=== PATIENT | female | born 1985 | race Caucasian/White ===

== ENCOUNTER 2018-07-09 11:43 | Inpatient (IN) ==
[2018-07-09] MEDS ORDERED: RINGER'S SOLUTION,LACTATED 1,000 ML IV PRN ×2 (11:48)
[2018-07-09 12:08] LABS: Hematocrit 38.8 % (37.0-47.0); Hemoglobin 13.2 gm/dL (12.5-16.0); Mean Cell Volume 85.8 fl (78-100); Mean Corpuscular Hemoglobin 29.2 pg (27-31); Mean Platelet Volume 10.3 fl (8-12.5); Neutrophil # 7.5 K/mm3 (1.3-6.0); Neutrophil % 74.6 % (42-75.0); Platelet Count 149 K/mm3 (150-450); Red Blood Count 4.52 M/mm3 (4.2-5.4); Red Cell Distribution Width 13.9 % (11.5-14.0)
--- NOTE | 2018-07-09 12:27 | HP ---
Chief Complaint - Chief Complaint Date of Service: 07/09/18 Time of Service: 12:18 Chief Complaint: contractions History of Present Illness: 33 yo at 37 4/7 wks presents to L&D from office for contractions of increasing frequency and intensity over the past 2 hours, bringing her to tears. This complicated by AMA, DPS via bilateral salpingectomy, prior c/s x 2, thrombocytopenia (134K on 06/25/18). Rh positive Rubella immune GBS positive Medical History (Last Reviewed 07/09/18 @ 12:21 by Dale Soliz DO) Advanced maternal age affecting , antepartum (Acute) Request for sterilization (Acute) Informed consent signed for bilateral salpingectomy 06/25/18 Thrombocytopenia (Acute) Onset Date: 06/25/18 Influenza vaccination declined by patient (Acute) Onset Date: 06/25/18 Advanced maternal age (AMA) in Onset Date: 06/25/18 Body piercing Onset Date: Unknown Cephalalgia Onset Date: 08/19/14 Cluster headache Onset Date: Unknown Migraine Onset Date: 08/19/14 Obesity Onset Date: Unknown Wears glasses Onset Date: Unknown Spontaneous Onset Date: ~2001 Surgical History: Surgical History (Last Reviewed 07/09/18 @ 12:21 by Dale Soliz DO) Previous section (Chronic) C/S x 2 H/O dilation and curettage Onset Date: ~2001 History of cholecystectomy Onset Date: ~2012 Hx of adenoidectomy Onset Date: ~1987 as a child Hx of tonsillectomy Onset Date: ~1987 as a child Hx of tympanostomy tubes Onset Date: Unknown Previous section Onset Date: ~2002 Family History: Family History (Last Reviewed 07/09/18 @ 12:21 by Dale Soliz DO) Mother Alive and well Father Diabetes Hypertension Social History: Preferred Language [place] Smoking Status Never smoker (Last Updated 07/09/18 @ 11:52 by Dale Soliz DO) No Social History Section defined Review Of Systems (GEN) - Review of Systems Generalized/Overall Review: Present: No Symptoms Reported EENTM: Present: No Symptoms Reported Respiratory: Present: No Symptoms Reported Cardiac: Present: No Symptoms Reported Abdominal: Present: Other - contractions Genitourinary: Present: No Symptoms Reported Musculoskeletal: Present: No Symptoms Reported Neurological: Present: No Symptoms Reported Skin: Present: No Symptoms Reported Endocrine: Present: No Symptoms Reported Allergies/Adverse Reactions: Allergies Allergy/AdvReac Type Severity Reaction Status Date / Time No Known Drug Allergies Allergy Verified 07/09/18 12:05 Home Medications: HOME MEDICATIONS vitamins no.106-iron 27.5 mg-folate no.6 1 mg-dha capsule 1 cap PO DAILY 06/25/18 [Last Taken Unknown] Exam - Exam Vital Signs: Vital Signs - Last Taken Temp 36.4 C 07/09/18 11:55 Pulse 112 H 07/09/18 11:55 Resp 18 07/09/18 11:55 BP 151/92 H 07/09/18 11:55 Pulse Ox 95 07/09/18 11:55 Constitutional: Present: Alert, Oriented x3, Cooperative, Moderate distress ENT Exam: Present: hearing grossly normal Respiratory: Present: lungs clear, no respiratory distress Cardiovascular/Chest: Present: normal peripheral pulses, no edema, tachycardia. Absent: diastolic murmur, systolic murmur Abdomen: Present: soft, nontender, no rebound tenderness, other - gravid /Rectal: Present: Other - cervix 1/50/-2 Extremity: Present: no pedal edema, no calf tenderness Skin Exam: Present: normal color, warm/dry, no cyanosis Neurologic: Present: alert, normal mood/affect, oriented x 3 Appearance: Present: appropriate appearance, appropriate insight, other - appears in pain Eye contact: Present: cooperative, good eye contact Thoughts: Present: normal thought pattern Diagnostic Studies: Abnormal Lab Results 07/09/18 Range/Units 12:00 Plt Count 149 L (150-450) K/mm3 Immature Gran % (Auto) 0.90 H (0.001-0.429) % Immature Gran # (Auto) 0.09 H (0.000-0.0310) K/mm3 Lymphocytes % 15.7 L (20-51) % Neutrophils # 7.5 H (1.3-6.0) K/mm3 Laboratory Results WBC 10.0 K/mm3 (4.0-10.5) 07/09/18 12:00 RBC 4.52 M/mm3 (4.2-5.4) 07/09/18 12:00 Hgb 13.2 gm/dL (12.5-16.0) 07/09/18 12:00 Hct 38.8 % (37.0-47.0) 07/09/18 12:00 MCV 85.8 fl (78-100) 07/09/18 12:00 MCH 29.2 pg (27-31) 07/09/18 12:00 MCHC 34.0 g/dl (32-36) 07/09/18 12:00 RDW 13.9 % (11.5-14.0) 07/09/18 12:00 Plt Count 149 K/mm3 (150-450) L 07/09/18 12:00 MPV 10.3 fl (8-12.5) 07/09/18 12:00 Immature Gran % (Auto) 0.90 % (0.001-0.429) H 07/09/18 12:00 Immature Gran # (Auto) 0.09 K/mm3 (0.000-0.0310) H 07/09/18 12:00 Neutrophils % 74.6 % (42-75.0) 07/09/18 12:00 Lymphocytes % 15.7 % (20-51) L 07/09/18 12:00 Monocytes % 8.3 % (0.0-9) 07/09/18 12:00 Eosinophils % 0.4 % (0.0-3.0) 07/09/18 12:00 Basophils % 0.1 % (0.0-1.0) 07/09/18 12:00 Nucleated RBC % 0.0 k/mm3 (0-1) 07/09/18 12:00 Neutrophils # 7.5 K/mm3 (1.3-6.0) H 07/09/18 12:00 Lymphocytes # 1.57 k/mm3 (1.5-3.5) 07/09/18 12:00 Monocytes # 0.8 k/mm3 (0.0-1.0) 07/09/18 12:00 Eosinophils # 0.0 k/mm3 (0.0-0.7) 07/09/18 12:00 Absolute Basophils 0.0 k/mm3 (0.0-0.1) 07/09/18 12:00 Assessment/Plan - Assessment/Plan (1) First stage of labor established Assessment: R/b/a reviewed with patient and spouse regarding repeat section with bilateral salpingectomy. All questions answered. Will proceed with surgery due to onset of labor. Problem: Acute (2) Advanced maternal age affecting , antepartum Problem: Acute (3) Request for sterilization Problem: Acute (4) Previous section Problem: Chronic (5) Thrombocytopenia Problem: Acute (6) Influenza vaccination declined by patient Problem: Acute
[2018-07-09] MEDS ORDERED: ceFAZolin SODIUM/DEXTROSE,ISO 2 GM/50 ML BAG IV ONE (12:30)
[2018-07-09] MEDS ORDERED: OXYTOCIN 20 UNITS in RINGER'S SOLUTION,LACTATED 1,000 ML IV ONE (12:30)
--- NOTE | 2018-07-09 12:51 | ANES ---
Anesthesia Pre Procedure Eval Vitals/Labs: Last Vital Signs Temp 36.4 C 07/09/18 11:55 Pulse 112 H 07/09/18 11:55 Resp 18 07/09/18 11:55 BP 151/92 H 07/09/18 11:55 Pulse Ox 95 07/09/18 11:55 HOME MEDICATIONS vitamins no.106-iron 27.5 mg-folate no.6 1 mg-dha capsule 1 cap PO DAILY 06/25/18 [Last Taken Unknown] Allergies/Adverse Reactions: Allergies Allergy/AdvReac Type Severity Reaction Status Date / Time No Known Drug Allergies Allergy Verified 07/09/18 12:05 - Planned Procedure Planned Procedure: ACTIVE LABOR Medication List Reviewed:: Yes Allergies Verified: Yes Medical History (Last Reviewed 07/09/18 @ 12:50 by Jose Osorio CRNA) Advanced maternal age affecting , antepartum (Acute) Request for sterilization (Acute) Informed consent signed for bilateral salpingectomy 06/25/18 Thrombocytopenia (Acute) Onset Date: 06/25/18 Influenza vaccination declined by patient (Acute) Onset Date: 06/25/18 Advanced maternal age (AMA) in Onset Date: 06/25/18 Body piercing Onset Date: Unknown Cephalalgia Onset Date: 08/19/14 Cluster headache Onset Date: Unknown Migraine Onset Date: 08/19/14 Obesity Onset Date: Unknown Wears glasses Onset Date: Unknown Spontaneous Onset Date: ~2001 Surgical History (Last Reviewed 07/09/18 @ 12:50 by Jose Osorio CRNA) Previous section (Chronic) C/S x 2 H/O dilation and curettage Onset Date: ~2001 History of cholecystectomy Onset Date: ~2012 Hx of adenoidectomy Onset Date: ~1987 as a child Hx of tonsillectomy Onset Date: ~1987 as a child Hx of tympanostomy tubes Onset Date: Unknown Previous section Onset Date: ~2002 Family History (Last Reviewed 07/09/18 @ 12:50 by Jose Osorio CRNA) Mother Alive and well Father Diabetes Hypertension - Family Anesthesia History Family History:: no untoward family reactions to anesthesia, no familial bleeding tendencies, no family history of clotting disorders, no family history of premature - Airway/Neck/Teeth Within Normal Limits:: Yes Teeth Condition: intact Neck Exam: full range of motion Mallampatti Score: 2 Thyromental (T-M) distance: > 6 cm Mandibulo Hyoid distance: > 3 cm - Respiratory Smoking Status: Never smoker Sleep Apnea currently treated: No Sleep Apnea by current assessment: No - Cardiovascular Tolerate Activity: Fair Heart Sounds: S1 & S2, Regular - Anesthesia Assessment and Plan ASA Class: PS, II, E Anesthesia Type Plan: Block - possible TAP block for post op pain relief, Spinal Planned difficult intubation/equipment available: No
[2018-07-09] MEDS ORDERED: CALCIUM CARBONATE 500 MG TAB.CHEW PO PRN (14:23)
[2018-07-09] MEDS ORDERED: oxyCODONE HCL/ACETAMINOPHEN 1 TAB TABLET PO PRN (15:02)
[2018-07-09] MEDS ORDERED: SIMETHICONE 80 MG TAB.CHEW PO PRN (15:02)
[2018-07-09] MEDS ORDERED: SENNOSIDES 8.6 MG TABLET PO PRN (15:02)
[2018-07-09] MEDS ORDERED: ONDANSETRON HCL/PF 2 MG/ML VIAL IV PRN (15:02)
[2018-07-09] MEDS ORDERED: BISACODYL 10 MG SUPP.RECT RC PRN (15:02)
[2018-07-09] MEDS ORDERED: HYDROmorphone HCL 1 MG/ML DISP.SYRIN IV ONE (15:12)
--- NOTE | 2018-07-09 15:12 | OR ---
Operative Report - Dictated Report Narrative: Indication: 33-year-old 4 para 2 at 37-4/7 weeks presents to labor and delivery in labor with prior section 2 and desiring permanent sterilization via bilateral salpingectomy. status: Planned - Urgent Pre Operative Diagnosis: 37-4/7 week intrauterine , prior section 2, labor, desires permanent sterilization via bilateral salpingectomy Post Operative Diagnosis: Same. Uterine and omental adhesions to anterior abdominal wall Procedure: Repeat low transverse section. Bilateral salpingectomy. Abdominal scar revision - 18cm Surgeon: Allen Soliz DO Child Welfare Director: OR Staff Anesthesia: Spinal, TAP block Estimated Blood Loss: 300 mL Urine Output: 200 mL clear urine Fluids Replacement: 1500 mL of crystalloid Drains: Nicole to gravity Surgical Complications: None Specimens: Placenta to freezer Findings: Male born vigorously crying at 1326 on 07/09/2020 in cephalic presentation with Apgars 9 and 9, weighing 3520 g. Umbilical cord draped around neck loosely. Uterus adherent to anterior abdominal wall, omentum adherent to anterior abdominal wall and bladder, normal-appearing tubes and ovaries. Technique: The patient was taken to the operating room and placed in dorsal supine position with a left lateral tilt. After adequate spinal anesthesia, nicole catheter inserted, SCDs placed, and 2 g of Ancef given preoperatively, the previous scar was excised in an elliptical fashion and the abdominal cavity was entered using sharp and blunt dissection. Uterine and omental adhesions were taken down sharply and bluntly with the scalpel, Bovie, and traction. A transverse incision was made in the lower uterine segment and extended laterally and upwardly with digital traction. Clear fluid was noted upon amniotomy. The infant was delivered easily. The cord was clamped within 30 seconds then cut. The was handed off to awaiting explosive operator grenade. The placenta was allowed to deliver spontaneously. The uterus was cleared of clot and debris. Uterine incision was closed with 0 Vicryl using a running stitch. A second imbricating layer was placed. Excellent hemostasis was noted. The right fallopian tube was identified and followed out to the fimbriated end. The mesosalpinx was coagulated with Kleppingers and transected with Metzenbaum scissors. The tube was coagulated approximately 2 cm from the cornual region, transected, then sent to pathology. The exact same was done on the patient's left side. The proximal portion of mesosalpinx and fallopian tube continued bleeding which was controlled with 2 [id number] 0 Vicryl sutures. Excellent hemostasis was noted. The pelvis was irrigated with normal saline. The peritoneum was closed with a running 3-0 Monocryl. The same suture was used to approximate the rectus and pyramidalis muscles. The fascia was closed with a running 0 Vicryl. The subcutaneous layer was closed with a running 3-0 Monocryl. The same suture was used to approximate the subdermal layer. The skin was closed with a running 4-0 Monocryl and Dermabond. Sponge, lap, needle, and instrument count were correct x 2. Disposition: To post anesthesia care unit in good condition History for MU Definition: * The number of deliveries resulting in a live the patient experienced prior to current hospitalization * The previous delivery of live twins or any live multiple gestation is considered one live event. *If primagravida or nulliparous is documented select zero for the number of previous live births. Live Events: 2
--- NOTE | 2018-07-09 15:15 | ANES ---
Anesthesia Procedure Note Procedure Note: ANESTHESIA PROCEDURE NOTE Date of Procedure: 07/09/2018 Time of procedure: 1500. Performed by: RICH Ramsay CRNA, MSN Pharmacist Apprentice: Dejah Anne RN. Preprocedure diagnosis: Post section pain. Post procedure diagnosis: Same. Procedure: Bilateral TAP block Indications: Post section pain relief. Findings: See below. Details of the procedure: The patient was brought to PACU and placed in the supine position. The patient was prepped with chlorhexidine and using ultrasound guidance the 3 abdominal muscular planes were identified and lidocaine 1% was infiltrated to the skin of the intended injection site. Under ultrasound guidance the the internal oblique and transverse this abdominis muscle layers were approached with visualization of a 4 inch block needle until the tip of the needle rested in the plane between the muscles. 25 mL bupivacaine 0.25% with 1-200,000 epinephrine was injected and the procedure was repeated on the other side. Please see radiology/ultrasound report for details and images of the procedure. EBL: 0 Fluids: N/A. Specimen: N/A. Post procedure condition: The patient tolerated the procedure well. No complications were noted. Thank you for this consultation. Jose Osorio CRNA, MSN
--- NOTE | 2018-07-09 16:01 | ANES ---
Post Anesthesia Assessment - Vital Signs Vitals: Last Vital Signs Temp 36.8 C 07/09/18 15:30 Pulse 109 H 07/09/18 15:50 Resp 18 07/09/18 15:50 BP 139/81 07/09/18 15:50 Pulse Ox 99 07/09/18 15:50 Airway Patency: Normal - Mental Status Level Of Consciousness: Awake, Alert, Appropriate - Pain Level Pain Score: 5 - N/V Assessment Nausea/Vomiting Presence: None Dehydration:: No
[2018-07-09] MEDS: oxyCODONE HCL/ACETAMINOPHEN 1 TAB TABLET PO PRN ×3 (16:34→22:46)
[2018-07-09] MEDS: IBUPROFEN 800 MG TABLET PO PRN ×2 (16:35→22:47)
[2018-07-09] MEDS: DOCUSATE SODIUM 100 MG CAPSULE PO SCH (20:40)
[2018-07-09 21:30] LABS: Cocaine Ur Negative (NEGATIVE); Urine Barbiturate Negative (NEGATIVE); Urine Benzodiazepines Negative (NEGATIVE); Urine Opiates Negative (NEGATIVE); Urine PCP Negative (NEGATIVE); Urine THC Negative (NEGATIVE)
[2018-07-09] MEDS: ENOXAPARIN SODIUM 40 MG/0.4 ML SYRG SC SCH (22:48)
[2018-07-10] MEDS: IBUPROFEN 800 MG TABLET PO PRN ×3 (07:22→22:32)
[2018-07-10] MEDS: DOCUSATE SODIUM 100 MG CAPSULE PO SCH ×3 (07:22→22:32)
[2018-07-10] MEDS: PRENATAL VITS96/IRON FUM/FOLIC 1 TAB TABLET PO SCH (11:48)
[2018-07-10] MEDS: oxyCODONE HCL/ACETAMINOPHEN 1 TAB TABLET PO PRN ×3 (13:47→22:34)
--- NOTE | 2018-07-10 18:21 | PN ---
Subjective - Date and Time Seen Date: 07/10/18 Time: 18:19 Objective - Vitals Vitals: Last Vital Signs Temp 36.2 C 07/10/18 17:24 Pulse 103 H 07/10/18 17:24 Resp 18 07/10/18 17:24 BP 134/73 07/10/18 17:24 Pulse Ox 96 07/10/18 17:24 [Patient denies complaints. Tolerating regular diet. Ambulating without difficulty. Pain well controlled.] Lochia wnl. Abdomen - soft, appropriately tender Incision - [clean, dry, intact] Uterus - firm, at umbilicus -[1] No calf tenderness Impression: Post op day #1 s/p repeat section with bilateral salpingectomy and abdominal scar revision. Intermittently elevated blood pressures Plan: Continue routine post-operative/ care. Monitor closely for signs symptoms of preeclampsia Cauti Physician Documentation - Urinary Catheter Management Urethral (Mittal) Date of Insertion: 07/09/18 Time of Insertion: 13:05 Assessment/Plan - Problems/Diagnosis (1) First stage of labor established Problem: Acute (2) Advanced maternal age affecting , antepartum Problem: Acute (3) Request for sterilization Problem: Acute (4) Previous section Problem: Chronic (5) Thrombocytopenia Problem: Acute (6) Influenza vaccination declined by patient Problem: Acute
[2018-07-10] MEDS: ENOXAPARIN SODIUM 40 MG/0.4 ML SYRG SC SCH (22:39)
[2018-07-11] MEDS: oxyCODONE HCL/ACETAMINOPHEN 1 TAB TABLET PO PRN ×2 (04:15→08:42)
[2018-07-11] MEDS: IBUPROFEN 800 MG TABLET PO PRN (08:41)
[2018-07-11] MEDS: DOCUSATE SODIUM 100 MG CAPSULE PO SCH (08:41)
[2018-07-11] MEDS: PRENATAL VITS96/IRON FUM/FOLIC 1 TAB TABLET PO SCH (08:42)
[2018-07-11 09:26] VITALS: BP 139/84
--- NOTE | 2018-07-11 13:18 | PN ---
Subjective - Date and Time Seen Date: 07/11/18 Time: 09:30 Objective - Vitals Vitals: Last Vital Signs Temp 36.0 C 07/11/18 09:16 Pulse 97 07/11/18 09:16 Resp 16 07/11/18 09:16 BP 139/84 07/11/18 09:16 Pulse Ox 97 07/11/18 09:16 Patient denies complaints. Ambulating well. Tolerating regular diet. Pain well controlled. Lochia wnl. Abdomen - soft, appropriately tender Incision - clean, dry, intact Uterus - firm, at umbilicus -2 No calf tenderness Impression: Post op day #2 s/p repeat section. Patient desires early discharge since baby is at [place]. Plan: Continue routine post-operative/ care. Routine discharge instructions. Cauti Physician Documentation - Urinary Catheter Management Urethral (Mittal) Date of Insertion: 07/09/18 Time of Insertion: 13:05 Assessment/Plan - Problems/Diagnosis (1) First stage of labor established Problem: Acute (2) Advanced maternal age affecting , antepartum Problem: Acute (3) Request for sterilization Problem: Acute (4) Previous section Problem: Chronic (5) Thrombocytopenia Problem: Acute (6) Influenza vaccination declined by patient Problem: Acute
== END 2018-07-11 11:00 | disposition home or self-care (01) | DRG 784 ==
LOC: OB 11:43
PROVIDERS: ADMIT Obstetrics & Gynecology; ATTEND Obstetrics & Gynecology
CPT/HCPCS: 36415; 59025; 64486; 80307; 85025; 88302; 88307